=== PATIENT | female | born 1965 | race African-American/Black ===

== ENCOUNTER 2018-05-10 15:33 | Inpatient (IN) | payer OTHER ==
[2018-05-10 16:40] VITALS: BMI 45.5
--- NOTE | 2018-05-10 17:35 | HP ---
Admission [facility] Chief Complaint: "I want to get clean and go to my program [facility]" K2, Alcohol and THC rehabilitation Allergies/Adverse Reactions: Allergies Allergy/AdvReac Type Severity Reaction Status Date / Time No Known Allergies Allergy Verified 05/10/18 17:06 History of Present Illness: 53 yo female with hx K2, alcohol and marijuana dependence is here seeking rehabilitation. Last detox 10 years at [facility]. Patient currently domiciled. PMHX: HIV+ on meds, asthma, HTN, Gout, GERD, schizophrenia. Denies suicidal / homicidal ideation or hx of suicide attempt. Denies auditory or visual hallucinations at this time. Denies hx of seizures or blackouts. Reports currently on parole for selling drugs. Report longest period of sobriety six years. Exam Limitations: No Limitations - Ebola screening Have you traveled outside of the country in the last 21 days: No (N) Have you had contact with anyone from an Ebola affected area: No Have you been sick,other than usual withdrawal symptoms: No Do you have a fever: No - Review of Systems Constitutional: Changes in sleep EENT: reports: No Symptoms Reported Respiratory: reports: No Symptoms reported Cardiac: reports: No Symptoms Reported GI: reports: No Symptoms Reported : reports: No Symptoms Reported Musculoskeletal: reports: Neck Pain, Other (left leg) Integumentary: reports: No Symptoms Reported Neuro: reports: No Symptoms reported Endocrine: reports: Increased Thirst Hematology: reports: Blood Clots (hx of DVT 5 years ago) Psychiatric: reports: Orientated x3, Anxious Other Systems: Reviewed and Negative Patient History - Patient Medical History Hx Asthma: Yes Hx Chronic Obstructive Pulmonary Disease (COPD): No Hx Cardiac Disorders: No Hx Hypertension: Yes Hx Seizures: No Hx Diabetes: No Hx Gastrointestinal Disorders: Yes (acid reflux) Hx Genitourinary Disorders: No Hx Sexually Transmitted Disorders: No Hx Renal Disease (ESRD): No Hx Depression: No Hx Suicide Attempt: No Hx Schizophrenia: Yes - Patient Surgical History Past Surgical History: Yes Hx Neurologic Surgery: No Hx Cataract Extraction: No Hx Cardiac Surgery: No Hx Lung Surgery: No Hx Breast Surgery: No Hx Breast Biopsy: No Hx Abdominal Surgery: No Hx Appendectomy: No Hx Cholecystectomy: No Hx Genitourinary Surgery: No Hx Section: No Hx Orthopedic Surgery: Yes (scoliosis in 1971) - PPD History Previous Implant?: Yes Documented Results: Negative w/o proof - Reproductive History Patient : No - Smoking Cessation Smoking history: Never smoked Have you smoked in the past 12 months: No Hx Chewing Tobacco Use: No Initiated information on smoking cessation: No - Substances Abused Alcohol-whisky Route: Oral Frequency: 1-2 times per week Amount used: 1/2 pt. Age of first use: 25 Date of Last Use: 04/26/18 K2 Route: Smoking Frequency: Daily Amount used: $15 Age of first use: 52 Date of Last Use: 06/07/18 Family Disease History - Family Disease History Family Disease History: Other: Grandparent (Gnd Mother and granfather alcoholism , liver cirrhosis, ) Admission Physical Exam S - Vital Signs Vital Signs: Vital Signs - 24 hr 05/10/18 16:38 Temperature 97.9 F Pulse Rate 74 Respiratory 18 Rate Blood Pressure 156/83 - Physical General Appearance: Yes: Disheveled, Obese, Anxious HEENTM: Yes: EOMI, Hearing grossly Normal, Normal ENT Inspection, Normocephalic , Normal Voice, YEISON, Pharynx Normal, Tm's normal, Other (poor dentition) Respiratory: Yes: Chest Non-Tender, Lungs Clear, Normal Breath Sounds, No Respiratory Distress, No Accessory Muscle Use Neck: Yes: Within Normal Limits Breast: Yes: Breast Exam Deferred Cardiology: Yes: Regular Rhythm, Regular Rate Abdominal: Yes: Normal Bowel Sounds, Non Tender, Soft, Protuberent Genitourinary: Yes: Within Normal Limits Back: Yes: Normal Inspection Musculoskeletal: Yes: full range of Motion, Gait Steady, Pelvis Stable Extremities: Yes: Normal Capillary Refill, Normal Inspection, Normal Range of Motion, Non-Tender Neurological: Yes: senior investigator II-XII NML intact, Fully Oriented, Alert, Motor Strength 5/5, Depressed Affect Integumentary: Yes: Normal Color, Dry, Warm Lymphatic: Yes: Within Normal Limits - Diagnostic (1) Marijuana dependence Current Visit: Yes Status: Acute (2) Alcohol dependence Current Visit: Yes Status: Acute Qualifiers: Substance use status: uncomplicated Qualified Code(s): F10.20 - Alcohol dependence, uncomplicated (3) Illicit drug use Current Visit: Yes Status: Acute Comment: K2 (4) Morbidly obese Current Visit: Yes Status: Chronic (5) Gout Current Visit: Yes Status: Chronic Qualifiers: Gout site: unspecified site Gout etiology: unspecified cause Chronicity: chronic Presence of tophus: without tophus Qualified Code(s): M1A.9XX0 - Chronic gout, unspecified, without tophus (tophi) (6) Hypertension Current Visit: Yes Status: Chronic Qualifiers: Hypertension type: essential hypertension Qualified Code(s): I10 - Essential (primary) hypertension (7) GERD (gastroesophageal reflux disease) Current Visit: Yes Status: Chronic Qualifiers: Esophagitis presence: without esophagitis Qualified Code(s): K21.9 - Gastro -esophageal reflux disease without esophagitis (8) HIV (human immunodeficiency virus infection) Current Visit: Yes Status: Chronic BHS Breath Alcohol Content Breath Alcohol Content: 0 Urine Pregancy Test - Result Urine Test Results: Negative- NO Line Present Urine Drug Screen - Results Drug Screen Negative: Yes Urine Drug Screen Results: THC-Marijuana, BAR-Barbiturates Inpatient Rehab Admission - Initial Determination Are CD services needed?: Yes Free of communicable disease: Yes Not in need of hospitalization: Yes - Rehab Admission Criteria Previous failed treatment: Yes Poor recovery environment: Yes Comorbidities: Yes Lacks judgement: Yes Patient is meeting Inpatient Rehab admission criteria:: Yes
[2018-05-10] MEDS ORDERED: ALBUTEROL SO4 8 GM HFA INHALER IH PRN (17:39)
[2018-05-10] MEDS ORDERED: NAPROXEN 500 MG TABLET (FP) PO PRN (17:39)
[2018-05-10] MEDS ORDERED: diphenhydrAMINE HCL 25 MG CAPSULE (FP) PO PRN (17:39)
[2018-05-10] MEDS ORDERED: MAGNESIUM CITRATE 300 ML BOTTLE PO PRN (21:12)
[2018-05-10] MEDS ORDERED: ACETAMINOPHEN 325 MG TABLET (FP) PO PRN (21:12)
[2018-05-10] MEDS ORDERED: MAG HYDROX/AL HYDROX/SIMETH 30 ML UNIT-DOSE CUP PO PRN (21:12)
[2018-05-10] MEDS ORDERED: LOPERAMIDE HCL 2 MG CAPSULE PO PRN (21:12)
[2018-05-10] MEDS ORDERED: MENTHOL/PHENOL 1 EACH UD MM PRN (21:12)
[2018-05-10] MEDS ORDERED: P-EPHED 60MG/TRIPROLIDI 2.5MG TABLET PO PRN (21:12)
[2018-05-10] MEDS ORDERED: guaiFENesin/D-METHORPHAN HB 10 ML UNIT-DOSE CUPS PO PRN (21:12)
[2018-05-10] MEDS ORDERED: MAGNESIUM HYDROX 2400MG/30ML ORAL SUSPENSION 30 ML CUP PO PRN (21:12)
[2018-05-10] MEDS ORDERED: hydrOXYzine PAMOATE 50 MG CAPSULE (FP) PO PRN (21:12)
[2018-05-10] MEDS: RANITIDINE HCL 150 MG TABLET (FP) PO SCH (21:39)
[2018-05-10] MEDS: THIAMINE HCL 100 MG TABLET (FP) PO SCH (21:39)
[2018-05-10] MEDS ORDERED: MELATONIN 5 MG TABLETS PO PRN (22:00)
[2018-05-11] MEDS ORDERED: PT OWN MED DRAWER 7, Y5N ONE (00:14)
[2018-05-11 00:18] LABS: URINE APPEARANCE SLCLOUDY; URINE BILIRUBIN NEGATIVE (<2.0 mg/dL); URINE COLOR YELLOW; URINE GLUCOSE (UA) NEGATIVE (NEGATIVE); URINE KETONE NEGATIVE (NEGATIVE); URINE LEUK ESTERASE NEGATIVE (NEGATIVE); URINE NITRITE NEGATIVE (NEGATIVE); URINE UROBILINOGEN NEGATIVE mg/dL (0.2-1.0)
[2018-05-11 00:25] LABS: URINE PROTEIN 1+ (NEGATIVE)
[2018-05-11 00:27] LABS: EPI CELLS FEW /HPF (FEW); URINE BACTERIA RARE /hpf (NONE SEEN); URINE MUCUS RARE
[2018-05-11 06:53] VITALS: TEMP 97.8
[2018-05-11 10:23] VITALS: BP 151/93; PULSE 69
[2018-05-11 10:25] LABS: HEMATOCRIT 37.5 % (32.4-45.2); HEMOGLOBIN 12.1 GM/dL (10.7-15.3); MCH 28.4 pg (25.7-33.7); MCHC 32.2 g/dl (32.0-36.0); MEAN CELL VOLUME 88.1 fl (80-96); MEAN PLT VOLUME 9.4 fl (7.5-11.1); PLATELET COUNT 164 K/MM3 (134-434); RBC 4.26 M/mm3 (3.60-5.2); WHITE BLOOD COUNT 4.8 K/mm3 (4.0-10.0)
[2018-05-11] MEDS: amLODIPine BESYLATE 5 MG TABLET (FP) PO SCH (10:37)
[2018-05-11] MEDS: PRENATAL VITAMINS W/ FOLIC ACID TABLET (FP) PO SCH (10:37)
[2018-05-11 10:56] LABS: ALBUMIN 3.2 g/dl (3.4-5.0); ALK PHOS 75 U/L (45-117); ANION GAP 9 MMOL/L (8-16); BILIRUBIN,TOTAL 0.5 mg/dL (0.2-1); BLOOD UREA NITROGEN 13 mg/dL (7-18); CALCIUM 8.3 mg/dL (8.5-10.1); CHLORIDE 106 mmol/L (98-107); CO2 25 mmol/L (21-32); CREATININE 0.7 mg/dL (0.55-1.3); GLUCOSE,RANDOM 80 mg/dL (74-106); POTASSIUM 3.7 mmol/L (3.5-5.1); SGOT/AST 15 U/L (15-37); SGPT/ALT 13 U/L (13-61); SODIUM 140 mmol/L (136-145); TOT PROT 7.6 g/dl (6.4-8.2)
--- NOTE | 2018-05-11 11:57 | HP ---
Psychiatrist Admission - Data Date of interview: 05/11/18 Admission source: Referred by parodeepa Identifying data: This is the first admission to [address] [place] [address] rehabilitation for this 53 years old AA single female ,no children,supported by [facility]. Medical History: HTN,Gout,HIV+,Obesity. Psychiatric History: patient is poor historian,hostile,not willing to to give any information.She was dx with Psychotic disorder,but refused to give any details about her treatment including medications,hospitalizations,history of suicidality.Patient is reluctant to treatment. Physical/Sexual Abuse/Trauma History: denies Vital Signs: Vital Signs - 24 hr 05/10/18 05/11/18 05/11/18 16:38 00:30 03:30 Temperature 97.9 F Pulse Rate 74 Respiratory 18 18 18 Rate Blood Pressure 156/83 05/11/18 05/11/18 06:52 10:00 Temperature 97.8 F Pulse Rate 53 L 69 Respiratory 18 Rate Blood Pressure 159/80 151/93 Allergies/Adverse Reactions: Allergies Allergy/AdvReac Type Severity Reaction Status Date / Time No Known Allergies Allergy Verified 05/10/18 17:06 Date of last physical exam: 05/10/18 Concur with the findings of this exam: Yes - Substance Abuse/Tx History Hx Alcohol Use: Yes (drinking since childhood.) Hx Substance Use: Yes (k2 started 6 months ago) Substance Use Type: Alcohol, Marijuana Hx Substance Use Treatment: Yes (completed long term care administrator inpatient 15 yo,no significant sobriety) Mental Status Exam - Mental Status Exam Alert and Oriented to: Time, Place, Person Cognitive Function: Grossly Intact Patient Appearance: Unkempt Mood: Hostile, Anxious, Irritable Affect: Labile Patient Behavior: Restless, Uncooperative, Guarded, Suspicious Speech Pattern: Clear Voice Loudness: Normal Thought Process: Goal Oriented Thought Disorder: Being Controlled Hallucinations: Denies Suicidal Ideation: Denies Homicidal Ideation: Denies Insight/Judgement: Impaired Sleep: Fair Appetite: Good Muscle strength/Tone: Normal Gait/Station: Normal Psychiatric Findings - Problem List (Leslie 1, 2,3) (1) Alcohol dependence Current Visit: Yes Status: Chronic Qualifiers: Substance use status: uncomplicated Qualified Code(s): F10.20 - Alcohol dependence, uncomplicated (2) Marijuana dependence Current Visit: Yes Status: Chronic (3) GERD (gastroesophageal reflux disease) Current Visit: Yes Status: Chronic Qualifiers: Esophagitis presence: without esophagitis Qualified Code(s): K21.9 - Gastro -esophageal reflux disease without esophagitis (4) Gout Current Visit: Yes Status: Chronic Qualifiers: Gout site: unspecified site Gout etiology: unspecified cause Chronicity: chronic Presence of tophus: without tophus Qualified Code(s): M1A.9XX0 - Chronic gout, unspecified, without tophus (tophi) (5) HIV (human immunodeficiency virus infection) Current Visit: Yes Status: Chronic (6) Hypertension Current Visit: Yes Status: Chronic Qualifiers: Hypertension type: essential hypertension Qualified Code(s): I10 - Essential (primary) hypertension (7) Morbidly obese Current Visit: Yes Status: Chronic (8) Psychotic disorder Current Visit: Yes Status: Acute - Initial Treatment Plan Initial Treatment Plan: Will monitor progress.
--- NOTE | 2018-05-11 11:59 | EKG ---
Test Reason : Blood Pressure : / mmHG Vent. Rate : 070 BPM Atrial Rate : 070 BPM P-R Int : 152 ms QRS Dur : 080 ms QT Int : 412 ms P-R-T Axes : 059 008 035 degrees QTc Int : 444 ms POOR DATA QUALITY, INTERPRETATION MAY BE ADVERSELY AFFECTED NORMAL SINUS RHYTHM NORMAL ECG NO PREVIOUS ECGS AVAILABLE Confirmed by HOOD DOYLE MD ([id number]) on 05/11/2018 11:59:07 AM Referred By: Confirmed By:HOOD DOYLE MD
--- NOTE | 2018-05-11 15:36 | PN ---
[facility] Progress Note Note: PT WANTS HER GENVOYA GIVEN AT 8:00 A.M DAILY. DUE TO TIME OF DAY OF ARRIVAL AND PHARMACY VERIFICATION TIME INTERVAL, PT WILL BE STARTING 8:00 A.M SCHEDULE TOMORROW REQUESTED. PT WILL BE GIVEN FIRST DOSE TODAY PENDING VERIFICATION BY PHARMACY. HOWEVER PATIENT HAS BEEN VERY ARGUMENTATIVE WITH THE NURSE AND REFUSED SAID DOSE TO BE GIVEN TODAY. PT DECLINED TO SPEAK TO THIS STOPE MINER DESPITE ALL EFFORTS MADE TO EXPLAIN TO PATIENT ABOVE. Vital Signs 05/11/18 10:00 Pulse Rate 69 Blood Pressure 151/93 Laboratory Tests 05/10/18 05/11/18 05/11/18 00:00 07:00 07:00 WBC 4.8 RBC 4.26 Hgb 12.1 Hct 37.5 MCV 88.1 MCH 28.4 MCHC 32.2 RDW 15.0 Plt Count 164 MPV 9.4 Sodium 140 Potassium 3.7 Chloride 106 Carbon Dioxide 25 Anion Gap 9 BUN 13 Creatinine 0.7 Creat Clearance w eGFR > 60 Random Glucose 80 Calcium 8.3 L Total Bilirubin 0.5 AST 15 ALT 13 Alkaline Phosphatase 75 Total Protein 7.6 Albumin 3.2 L Urine Color Yellow Urine Appearance Slcloudy Urine pH 5.0 Ur Specific [place] 1.030 Urine Protein 1+ H Urine Glucose (UA) Negative Urine Ketones Negative Urine Blood Negative Urine Nitrite Negative Urine Bilirubin Negative Urine Urobilinogen Negative Ur Leukocyte Esterase Negative Urine WBC (Auto) 2 Urine RBC (Auto) 3 Ur Epithelial Cells Few Urine Bacteria Rare Urine Mucus Rare RPR Titer 05/11/18 07:00 WBC RBC Hgb Hct MCV MCH MCHC RDW Plt Count MPV Sodium Potassium Chloride Carbon Dioxide Anion Gap BUN Creatinine Creat Clearance w eGFR Random Glucose Calcium Total Bilirubin AST ALT Alkaline Phosphatase Total Protein Albumin Urine Color Urine Appearance Urine pH Ur Specific [place] Urine Protein Urine Glucose (UA) Urine Ketones Urine Blood Urine Nitrite Urine Bilirubin Urine Urobilinogen Ur Leukocyte Esterase Urine WBC (Auto) Urine RBC (Auto) Ur Epithelial Cells Urine Bacteria Urine Mucus RPR Titer Nonreactive PLAN:ORDER DESCRIBED ABOVE. REDIRECT PATIENT NEEDED.
[2018-05-11] MEDS: THIAMINE HCL 100 MG TABLET (FP) PO SCH (23:03)
[2018-05-11] MEDS: RANITIDINE HCL 150 MG TABLET (FP) PO SCH (23:03)
[2018-05-12] MEDS: PRENATAL VITAMINS W/ FOLIC ACID TABLET (FP) PO SCH (10:19)
[2018-05-12] MEDS: amLODIPine BESYLATE 5 MG TABLET (FP) PO SCH (10:19)
[2018-05-12] MEDS ORDERED: PT OWN MED DRAWER 7, Y5N ONE (10:59)
--- NOTE | 2018-05-12 11:07 | PN ---
S Progress Note Note: patient was discharge today due to
== END 2018-05-12 11:10 | disposition left against medical advice (07) | DRG 772 ==
LOC: YASAS 15:33 → Y3E 18:03
PROVIDERS: ADMIT Psychiatry & Neurology Psychiatry; ATTEND Psychiatry & Neurology Psychiatry
PROC: HZ42ZZZ Group Counseling for Substance Abuse Treatment, Cognitive-Behavioral (ICD-10-PCS; principal; 2018-05-10)
DX: F10.20 Alcohol dependence, uncomplicated (principal); F12.20 Cannabis dependence, uncomplicated; F29 Unspecified psychosis not due to a substance or known physiological condition; Z21 Asymptomatic human immunodeficiency virus [HIV] infection status; I10 Essential (primary) hypertension; K21.9 Gastro-esophageal reflux disease without esophagitis; M1A.9XX0 Chronic gout, unspecified, without tophus (tophi); E66.09 Other obesity due to excess calories; Z68.42 Body mass index [BMI] 45.0-49.9, adult; F91.8 Other conduct disorders; Z91.19 Patient's noncompliance with other medical treatment and regimen
CPT/HCPCS: 36415; 80053; 81003; 81015; 85027; 86593; 93005; 93010